=== PATIENT | female | born 1955 | race Caucasian/White ===

== ENCOUNTER → 2016-04-13 | Day surgery (SDC) | payer OTHER ==
[~2016-04-13] MED LIST: CLARITIN10 MG PO; ESTRACE1 MG PO; KEPPRA250 MG PO; KEPPRA500 MG PO; MIRALAX17 GM PO; NORCO 5-325 TA1 EACH PO; PHENERGAN12.5 MG RC; PHENERGAN25 MG PR; PRILOSEC20 MG PO; PRIMIDONE PO; TOPROL XL25 MG PO; XANAX1 MG PO
== END | disposition home or self-care (01) ==
LOC: FAS 07:41
DX: K21.9 Gastro-esophageal reflux disease without esophagitis (principal); K29.70 Gastritis, unspecified, without bleeding; K44.9 Diaphragmatic hernia without obstruction or gangrene; F41.9 Anxiety disorder, unspecified; F32.9 Major depressive disorder, single episode, unspecified; G40.909 Epilepsy, unspecified, not intractable, without status epilepticus; K58.9 Irritable bowel syndrome, unspecified; I10 Essential (primary) hypertension; E78.5 Hyperlipidemia, unspecified; G47.30 Sleep apnea, unspecified; Z90.49 Acquired absence of other specified parts of digestive tract; Z90.89 Acquired absence of other organs; Z90.710 Acquired absence of both cervix and uterus; Z98.890 Other specified postprocedural states; Z88.2 Allergy status to sulfonamides; Z88.1 Allergy status to other antibiotic agents; Z88.6 Allergy status to analgesic agent; Z88.8 Allergy status to other drugs, medicaments and biological substances; Z82.61 Family history of arthritis; Z81.8 Family history of other mental and behavioral disorders; Z83.42 Family history of familial hypercholesterolemia; Z82.62 Family history of osteoporosis; Z84.89 Family history of other specified conditions; Z80.41 Family history of malignant neoplasm of ovary; Z83.1 Family history of other infectious and parasitic diseases; Z81.1 Family history of alcohol abuse and dependence; Z83.3 Family history of diabetes mellitus; Z79.818 Long term (current) use of other agents affecting estrogen receptors and estrogen levels; Z79.899 Other long term (current) drug therapy
CPT/HCPCS: 88305; J2704

== ENCOUNTER 2020-12-20 15:38 | Emergency (ER) | payer OTHER ==
[~2020-12-20 15:38] MED LIST changes: +COZAAR25 MG PO; +DEXILANT60 MG PO; +K-DUR20 MEQ PO; +KLONOPIN0.5 MG PO; +LINZESS145 MCG PO; +PAXIL10 MG PO; +PERCOCET 5-3251 EACH PO; +PULMICORT0.5 MG/2 M NEB; +SINGULAIR10 MG PO; +XOPENEX (00.63 MG/3 INH; +ZOCOR20 MG PO; +ZOFRAN4 MG PO; +ZPAK PO
== END 2020-12-20 18:18 | disposition home or self-care (01) ==
LOC: FER 15:38
DX: S61.551A Open bite of right wrist, initial encounter (principal); J44.9 Chronic obstructive pulmonary disease, unspecified; W55.01XA Bitten by cat, initial encounter; Y92.009 Unspecified place in unspecified non-institutional (private) residence as the place of occurrence of the external cause

== ENCOUNTER 2021-02-08 11:53 | Emergency (ER) | payer OTHER ==
[2021-02-08 13:47] LABS: CORONAVIRUS 2019 SARS-COV-2 POSITIVE (NEGATIVE); INFLUENZA A NAA NEGATIVE (NEGATIVE)
== END 2021-02-08 15:26 | disposition home or self-care (01) ==
LOC: FER 11:53
PROVIDERS: Internal Medicine
DX: U07.1 COVID-19 (principal); I10 Essential (primary) hypertension; Z88.7 Allergy status to serum and vaccine
CPT/HCPCS: 99283; U0002

== ENCOUNTER 2021-02-14 20:43 | Emergency (ER) | payer OTHER ==
[2021-02-14 21:34] LABS: BASOPHIL 0.6 % (0-2); EOSINOPHIL 0 % (0-7); HCT 42.1 % (37.0-47.0); HGB 13.8 g/dl (12.5-16.0); LYMPHOCYTE 30.4 % (15-48); MCH 29.6 pg (25.0-31.0); MCHC 32.8 g/dL (32.0-36.0); MCV 90.1 fL (78.0-100.0); MONOCYTE 8.2 % (0-12); MPV 10.6 fL (6.0-9.5); NEUTROPHIL 60.5 % (41-80); NRBC 0; PLT 143 K/uL (150-400); RBC 4.67 M/uL (4.20-5.40); RDW 13.6 % (11.5-14.0); WBC 3.2 K/uL (4.0-10.5)
[2021-02-14 22:15] LABS: ALBUMIN 3.8 g/dL (3.4-5.0); BILIRUBIN - TOTAL 0.4 mg/dL (0.2-1.0); BUN/CREAT RATIO (CALC) 9.6 RATIO; CREATININE 0.73 mg/dL (0.51-0.95); POTASSIUM 3.5 mmol/L (3.5-5.1); TOTAL PROTEIN 6.8 g/dL (6.4-8.2)
[2021-02-15] MEDS ORDERED: REGLAN10 M1 PO ×2 (01:50→17:01)
[2021-02-15 02:12] LABS: BILIRUBIN NEGATIVE (NEGATIVE); BLOOD NEGATIVE Ery/uL (NEGATIVE); CLARITY CLEAR (CLEAR); COLOR YELLOW (YELLOW); GLUCOSE (U) NORMAL (NORMAL); LEUKOCYTES NEGATIVE Leu/uL (NEGATIVE); NITRITE NEGATIVE (NEGATIVE); PROTEIN NEGATIVE (NEGATIVE); UROBILINOGEN 0.2 mg/dL (0.2-1.0)
== END 2021-02-15 02:20 | disposition home or self-care (01) ==
LOC: FER 20:43
PROVIDERS: Internal Medicine
DX: U07.1 COVID-19 (principal); J12.82 Pneumonia due to coronavirus disease 2019; K59.00 Constipation, unspecified; I10 Essential (primary) hypertension
CPT/HCPCS: 36415; 80053; 81003; 83690; 83880; 84145; 84484; 85025; 93005; J2405; J2765; J7030; Q0169

== ENCOUNTER 2021-05-29 04:18 | Emergency (ER) | payer OTHER ==
[~2021-05-29 04:18] MED LIST changes: +REGLAN10 M1 PO
[2021-05-29 04:40] LABS: BASOPHIL 0.5 % (0-2); EOSINOPHIL 2.7 % (0-7); HCT 39.8 % (37.0-47.0); HGB 13.1 g/dl (12.5-16.0); LYMPHOCYTE 36.6 % (15-48); MCH 29.5 pg (25.0-31.0); MCHC 32.9 g/dL (32.0-36.0); MCV 89.6 fL (78.0-100.0); MONOCYTE 7.3 % (0-12); MPV 10.2 fL (6.0-9.5); NEUTROPHIL 52.8 % (41-80); NRBC 0; PLT 273 K/uL (150-400); RBC 4.44 M/uL (4.20-5.40); RDW 13.9 % (11.5-14.0); WBC 7.8 K/uL (4.0-10.5)
[2021-05-29 04:57] LABS: ALBUMIN 3.8 g/dL (3.4-5.0); BILIRUBIN - TOTAL 0.2 mg/dL (0.2-1.0); BUN/CREAT RATIO (CALC) 14.5 RATIO; CREATININE 0.76 mg/dL (0.51-0.95); GLOBULIN (CALCULATION) 3.3 g/dL; TOTAL PROTEIN 7.1 g/dL (6.4-8.2)
[2021-05-29 05:42] LABS: BILIRUBIN NEGATIVE (NEGATIVE); BLOOD NEGATIVE Ery/uL (NEGATIVE); CLARITY CLEAR (CLEAR); COLOR YELLOW (YELLOW); GLUCOSE (U) NORMAL (NORMAL); LEUKOCYTES NEGATIVE Leu/uL (NEGATIVE); NITRITE NEGATIVE (NEGATIVE); PROTEIN NEGATIVE (NEGATIVE); SPECIFIC GRAVITY <=1.005 (1.001-1.030); UROBILINOGEN 0.2 mg/dL (0.2-1.0)
[2021-05-29 05:53] LABS: AMPHETAMINES NEGATIVE (NEGATIVE); BARBITURATES POSITIVE (NEGATIVE); ECSTASY (MDMA) NEGATIVE (NEGATIVE); MARIJUANA (THC) NEGATIVE (NEGATIVE); METHADONE NEGATIVE (NEGATIVE); OPIATES NEGATIVE (NEGATIVE); OXYCODONE NEGATIVE (NEGATIVE)
== END 2021-05-29 08:50 | disposition home or self-care (01) ==
LOC: FER 04:18
PROVIDERS: Internal Medicine
DX: G40.909 Epilepsy, unspecified, not intractable, without status epilepticus (principal); R53.1 Weakness; R20.9 Unspecified disturbances of skin sensation; Z28.310 Unvaccinated for COVID-19
CPT/HCPCS: 36415; 70450; 70551; 80053; 80305; 81003; 85025; J1953; J2060

== ENCOUNTER 2021-06-22 21:16 | Emergency (ER) | payer OTHER ==
[2021-06-22 21:53] LABS: BASOPHIL 0.2 % (0-2); EOSINOPHIL 2.1 % (0-7); HCT 39.5 % (37.0-47.0); HGB 12.9 g/dl (12.5-16.0); LYMPHOCYTE 34.4 % (15-48); MCH 29.7 pg (25.0-31.0); MCHC 32.7 g/dL (32.0-36.0); MCV 90.8 fL (78.0-100.0); MONOCYTE 7.5 % (0-12); MPV 10.7 fL (6.0-9.5); NEUTROPHIL 55.4 % (41-80); NRBC 0; PLT 258 K/uL (150-400); RBC 4.35 M/uL (4.20-5.40); RDW 13.2 % (11.5-14.0); WBC 8.2 K/uL (4.0-10.5)
[2021-06-22 22:10] LABS: CREATININE 0.73 mg/dL (0.51-0.95); POTASSIUM 3.6 mmol/L (3.5-5.1)
== END 2021-06-23 00:13 | disposition home or self-care (01) ==
LOC: FER 21:16
PROVIDERS: Internal Medicine
DX: J39.2 Other diseases of pharynx (principal); T46.7X5A Adverse effect of peripheral vasodilators, initial encounter; Z28.310 Unvaccinated for COVID-19
CPT/HCPCS: 36415; 80048; 85025; 96372; J0171; J1100; J1200

== ENCOUNTER 2021-10-07 19:41 | Emergency (ER) | payer OTHER ==
[2021-10-07 21:12] LABS: CORONAVIRUS 2019 SARS-COV-2 NEGATIVE (NEGATIVE); INFLUENZA A NAA NEGATIVE (NEGATIVE)
[2021-10-07 21:14] LABS: BASOPHIL 0.2 % (0-2); EOSINOPHIL 1.9 % (0-7); HCT 39.9 % (37.0-47.0); HGB 13.3 g/dl (12.5-16.0); MCH 29.6 pg (25.0-31.0); MCHC 33.3 g/dL (32.0-36.0); MCV 88.9 fL (78.0-100.0); MPV 10.7 fL (6.0-9.5); NEUTROPHIL 52.7 % (41-80); NRBC 0; PLT 257 K/uL (150-400); RBC 4.49 M/uL (4.20-5.40); RDW 13.2 % (11.5-14.0); WBC 8.6 K/uL (4.0-10.5)
[2021-10-07 21:30] LABS: BILIRUBIN - TOTAL 0.3 mg/dL (0.2-1.0); BUN/CREAT RATIO (CALC) 14.7 RATIO; CREATININE 0.68 mg/dL (0.51-0.95); GLOBULIN (CALCULATION) 2.9 g/dL; TOTAL PROTEIN 6.9 g/dL (6.4-8.2)
[2021-10-07] MEDS ORDERED: ONDANSETRON ODT4 MG PO (21:55)
== END 2021-10-07 22:07 | disposition home or self-care (01) ==
LOC: FER 19:41
PROVIDERS: Emergency Medicine; Nurse Practitioner Family
DX: R68.83 Chills (without fever) (principal); R11.0 Nausea; I10 Essential (primary) hypertension; Z20.822 Contact with and (suspected) exposure to COVID-19
CPT/HCPCS: 36415; 80053; 85025; J2405; J7030; U0002